=== PATIENT | male | born 1990 | race African-American/Black ===

== ENCOUNTER 2019-11-18 12:31 | Emergency (ER) | payer SELFPAY ==
[2019-11-18] MEDS ORDERED: Lidocaine 1% PF 5 ML VIAL ONE (12:54)
[2019-11-18] MEDS ORDERED: cefTRIAXone\\ROCEPHIN 500 MG VIAL ONE (12:54)
[2019-11-20 17:51] LABS: Chlam.trachomatis by PCR,Urine DETECTED (NotDetected)
== END 2019-11-18 13:12 | disposition home or self-care (01) ==
LOC: BURERS 12:31
DX: A54.01 Gonococcal cystitis and urethritis, unspecified (principal); F17.200 Nicotine dependence, unspecified, uncomplicated
CPT/HCPCS: 87491; 87591; 96372; 99283; J0696; J2001